=== PATIENT | female | born 1995 | race Caucasian/White ===

== ENCOUNTER 2018-06-01 11:45 | Emergency (ER) | payer OTHER ==
[~2018-06-01] VITALS: Ht 152.4 cm; Wt 66.2 kg
[2018-06-01] MEDS ORDERED: CLARITIN10 MG PO (13:11)
[2018-06-01] MEDS ORDERED: TESSALON PERLE100 MG PO (13:11)
[2018-06-01 13:19] VITALS: BP 138/92
== END 2018-06-01 13:21 | disposition home or self-care (01) ==
LOC: ER 11:45
DX: B34.9 Viral infection, unspecified (principal); J45.909 Unspecified asthma, uncomplicated; Z88.1 Allergy status to other antibiotic agents